=== PATIENT | female | born 1990 | race Hispanic/Latino ===

== ENCOUNTER 2018-01-20 07:35 | Inpatient (IN) | payer MEDICAID, OTHER ==
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
[2018-01-20] MEDS ORDERED: NACL 0.9% 1000 ML 2,000 ML ONE (08:48)
[2018-01-20] MEDS ORDERED: NACL 0.9% 1000 ML 1,000 ML IV ONE ×3 (09:28→14:46)
[2018-01-20] MEDS ORDERED: ATROPINE 0.1% (CARDIAC) IV ONE (09:28)
[2018-01-20 09:45] LABS: Basophils # (Auto) 0.1 K/mm3 (0.0-0.1); Eosinophils % (Auto) 0.5 % (0.0-4.3); Hematocrit 41.2 % (30.3-42.9); Hemoglobin 14.2 gm/dl (10.1-14.3); Lymphocytes # (Auto) 3.4 K/mm3 (1.2-5.4); Lymphocytes % (Auto) 44.8 % (13.4-35.0); Mean Corpuscular HGB Conc 35 % (30-34); Mean Corpuscular Hemoglobin 30 pg (28-32); Mean Corpuscular Volume 87 fl (79-97); Monocytes # (Auto) 0.6 K/mm3 (0.0-0.8); Monocytes % (Auto) 8.4 % (0.0-7.3); Platelet Count 493 K/mm3 (140-440); Red Blood Count 4.74 M/mm3 (3.65-5.03); Red Cell Distribution Width 14.6 % (13.2-15.2)
[2018-01-20] MEDS ORDERED: KEPPRA 1,000 MG in D5W 100 ML IV ONE (09:45)
[2018-01-20 09:51] LABS: Bacteria,Urine 1+ /HPF (Negative); Bilirubin,Urine NEG (Negative); Blood,Urine NEG (Negative); Calcium Oxalate Crystals,Urine 2+; Color,Urine Amber (Yellow); Mucus,Urine 2+ /HPF; Protein,Urine <15 mg/dL mg/dL (Negative)
[2018-01-20 09:52] LABS: HCG Qualitative,Urine Negative (Negative)
[2018-01-20 10:01] LABS: Alanine Aminotransferase 23 units/L (7-56); Albumin 4.4 g/dL (3.9-5); BUN/Creatinine Ratio 19; Blood Urea Nitrogen 13 mg/dL (7-17); Calcium 9.9 mg/dL (8.4-10.2); Hemolysis Index 25
[2018-01-20 10:06] LABS: Methadone Screen,Urine PRESUMPTIVE NEGATIVE; Opiate Screen,Urine PRESUMPTIVE NEGATIVE
[2018-01-20 10:20] LABS: Amphetamine Screen,Urine PRESUMPTIVE POSITIVE; Benzodiazepines Screen,Urine PRESUMPTIVE POSITIVE; Cannabinoid Screen,Urine PRESUMPTIVE POSITIVE; Cocaine Screen,Urine PRESUMPTIVE POSITIVE
[2018-01-20] MEDS ORDERED: KEPPRA 1,000 MG/NS 0.75% 100ML 1,000 MG/100 ML BAG IV ONE (11:00)
[2018-01-20] MEDS ORDERED: ATIVAN IV ONE (11:04)
[2018-01-20] MEDS ORDERED: K-DUR PO ONE ×2 (11:14→16:51)
--- NOTE | 2018-01-20 11:47 | Cat Scan Report ---
CT HEAD WITHOUT CONTRAST: HISTORY: Overdose. TECHNIQUE: Sequential 2.5mm CT images. COMPARISON: 09/12/15. FINDINGS: Cerebral Parenchyma: Within normal limits. Cerebellum: Within normal limits. Brainstem: Within normal limits. Ventricles: Normal. Sella: Normal. Extra-axial spaces: Normal. Basal Cisterns: Normal. Intracranial Hemorrhage: None. Midline Shift: None. Calvarium: Normal. Sinuses: Normal. Mastoid Air Cells: Normal. Visualized Orbits: Normal. IMPRESSION: Cranial CT scan within normal limits.
[2018-01-20] MEDS ORDERED: ROCEPHIN/NS 1 GM/50 ML 1 GM/50 ML BAG IV ONE (14:45)
[2018-01-20] MEDS ORDERED: NACL 0.9% 500 ML 500 ML IV ONE (15:59)
[2018-01-20] MEDS ORDERED: cefTRIAXone 1 GM in NACL 0.9% 20 ML IV ONE (16:00)
[2018-01-20 16:35] LABS: Alanine Aminotransferase 20 units/L (7-56); Albumin 3.9 g/dL (3.9-5); BUN/Creatinine Ratio 15; Blood Urea Nitrogen 9 mg/dL (7-17); Calcium 9.1 mg/dL (8.4-10.2); Hemolysis Index 5
[2018-01-20] MEDS ORDERED: NACL 0.9% 1000 ML 1,000 ML ONE (16:48)
[2018-01-20] MEDS ORDERED: ATIVAN ONE (16:49)
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
[2018-01-20] MEDS ORDERED: MORPHINE IV PRN (22:57)
[2018-01-20] MEDS ORDERED: TYLENOL PO PRN (22:57)
[2018-01-20] MEDS ORDERED: SODIUM CHLORIDE FLUSH SYRINGE 10 ML IV PRN (22:57)
[2018-01-20] MEDS ORDERED: ATIVAN PO PRN ×2 (23:00)
[2018-01-20] MEDS ORDERED: HALDOL IV PRN (23:00)
[2018-01-20] MEDS ORDERED: ATIVAN IV PRN ×2 (23:00)
[2018-01-21] MEDS: KEPPRA PO SCH ×3 (00:12→21:21)
[2018-01-21] MEDS: KCL 10MEQ/100ML 10 MEQ/100 ML BAG IV SCH ×4 (00:12→03:06)
[2018-01-21] MEDS: ATIVAN IV PRN ×2 (00:13→00:53)
[2018-01-21] MEDS: D5NS 1,000 ML IV SCH ×2 (00:14→19:16)
[2018-01-21 06:41] LABS: Basophils # (Auto) 0.1 K/mm3 (0.0-0.1); Basophils % (Auto) 1.1 % (0.0-1.8); Eosinophils # (Auto) 0.1 K/mm3 (0.0-0.4); Hemoglobin 12.4 gm/dl (10.1-14.3); Lymphocytes # (Auto) 4.2 K/mm3 (1.2-5.4); Lymphocytes % (Auto) 46.9 % (13.4-35.0); Mean Corpuscular HGB Conc 32 % (30-34); Mean Corpuscular Hemoglobin 28 pg (28-32); Mean Corpuscular Volume 89 fl (79-97); Monocytes # (Auto) 0.5 K/mm3 (0.0-0.8); Monocytes % (Auto) 5.9 % (0.0-7.3); Platelet Count 417 K/mm3 (140-440); Red Blood Count 4.39 M/mm3 (3.65-5.03); Red Cell Distribution Width 15.1 % (13.2-15.2)
[2018-01-21 07:05] LABS: Alanine Aminotransferase 18 units/L (7-56); Albumin 3.6 g/dL (3.9-5); BUN/Creatinine Ratio 14; Blood Urea Nitrogen 7 mg/dL (7-17); Calcium 8.9 mg/dL (8.4-10.2); Hemolysis Index 34
[2018-01-21] MEDS: PEPCID PO SCH ×2 (13:30→21:22)
[2018-01-21] MEDS: SODIUM CHLORIDE FLUSH SYRINGE 10 ML IV SCH ×2 (13:30→21:19)
[2018-01-21] MEDS ORDERED: ATIVAN PO ONE (13:37)
--- NOTE | 2018-01-21 15:10 | Progress Note ---
<MADDISON BANDA - Last Filed: 01/21/18 15:06> Assessment and Plan Assessment and plan: Patient is a 27-year-old woman who presented to the emergency department with drug overdose. Per patient's mother, who was interviewed by mental health information clerk, patient took a cocktail mixture of cocaine, THC, meth, liquid G and a pesticide. Drug overdose IV fluids for now, [facility] protocol Seizure disorder Continue Keppra Suicide attempt Patient on 1012, Mental health assessed pt, she will d/c to mental health facility once clinically stable Hypokalemia Normal today, s/p supplementation DVT prophylaxis SCDs History Interval history: Patient seen and examined. She is somnolent, responds to tactile stimuli, didn' t open her eyes. Labs and nursing notes reviewed. Hospitalist Physical - Physical exam Narrative exam: General appearance: Present: no acute distress, somnolent, well-nourished - EENT Eyes: Present: PERRL, EOM intact ENT: hearing intact, clear oral mucosa - Neck Present: supple, normal ROM - Respiratory Respiratory effort: normal Respiratory: bilateral: CTA - Cardiovascular Rhythm: regular Heart Sounds: Present: S1 & S2 - Extremities Extremities: no ischemia, No edema - Abdominal General gastrointestinal: soft, non-tender, non-distended - Integumentary Integumentary: Present: clear, warm, dry - Psychiatric Psychiatric: Unable to assess - Constitutional Vitals: Temp Pulse Resp BP Pulse Ox 97.7 F 84 20 128/90 100 01/21/18 04:00 01/21/18 04:00 01/21/18 04:00 01/21/18 04:00 01/21/18 00:40 Results - Labs CBC & Chem 7: 01/21/18 06:17 01/21/18 06:17 Labs: Laboratory Last Values WBC 9.0 K/mm3 (4.5-11.0) 01/21/18 06:17 RBC 4.39 M/mm3 (3.65-5.03) 01/21/18 06:17 Hgb 12.4 gm/dl (10.1-14.3) 01/21/18 06:17 Hct 39.0 % (30.3-42.9) 01/21/18 06:17 MCV 89 fl (79-97) 01/21/18 06:17 MCH 28 pg (28-32) 01/21/18 06:17 MCHC 32 % (30-34) 01/21/18 06:17 RDW 15.1 % (13.2-15.2) 01/21/18 06:17 Plt Count 417 K/mm3 (140-440) 01/21/18 06:17 Lymph % (Auto) 46.9 % (13.4-35.0) H 01/21/18 06:17 [place] % (Auto) 5.9 % (0.0-7.3) 01/21/18 06:17 Eos % (Auto) 1.0 % (0.0-4.3) 01/21/18 06:17 Baso % (Auto) 1.1 % (0.0-1.8) 01/21/18 06:17 Lymph # 4.2 K/mm3 (1.2-5.4) 01/21/18 06:17 [place] # 0.5 K/mm3 (0.0-0.8) 01/21/18 06:17 Eos # 0.1 K/mm3 (0.0-0.4) 01/21/18 06:17 Baso # 0.1 K/mm3 (0.0-0.1) 01/21/18 06:17 Seg Neutrophils % 45.1 % (40.0-70.0) 01/21/18 06:17 Seg Neutrophils # 4.0 K/mm3 (1.8-7.7) 01/21/18 06:17 Sodium 140 mmol/L (137-145) 01/21/18 06:17 Potassium 3.9 mmol/L (3.6-5.0) D 01/21/18 06:17 Chloride 105.3 mmol/L (98-107) 01/21/18 06:17 Carbon Dioxide 21 mmol/L (22-30) L 01/21/18 06:17 Anion Gap 18 mmol/L 01/21/18 06:17 BUN 7 mg/dL (7-17) 01/21/18 06:17 Creatinine 0.5 mg/dL (0.7-1.2) L 01/21/18 06:17 Estimated GFR > 60 ml/min 01/21/18 06:17 BUN/Creatinine Ratio 14 % 01/21/18 06:17 Glucose 94 mg/dL (65-100) 01/21/18 06:17 Calcium 8.9 mg/dL (8.4-10.2) 01/21/18 06:17 Phosphorus 3.00 mg/dL (2.5-4.5) 01/20/18 23:28 Magnesium 1.80 mg/dL (1.7-2.3) 01/20/18 23:28 Total Bilirubin 0.30 mg/dL (0.1-1.2) 01/21/18 06:17 AST 13 units/L (5-40) 01/21/18 06:17 ALT 18 units/L (7-56) 01/21/18 06:17 Alkaline Phosphatase 91 units/L (35-129) 01/21/18 06:17 Total Protein 6.4 g/dL (6.3-8.2) 01/21/18 06:17 Albumin 3.6 g/dL (3.9-5) L 01/21/18 06:17 Albumin/Globulin Ratio 1.3 % 01/21/18 06:17 Amylase 92 units/L (27-131) 01/20/18 23:28 Urine Color [place] (Yellow) 01/20/18 08:45 Urine Turbidity Cloudy (Clear) 01/20/18 08:45 Urine pH 6.0 (5.0-7.0) 01/20/18 08:45 Ur Specific [place] 1.021 (1.003-1.030) 01/20/18 08:45 Urine Protein <15 mg/dl mg/dL (Negative) 01/20/18 08:45 Urine Glucose (UA) Neg mg/dL (Negative) 01/20/18 08:45 Urine Ketones Tr mg/dL (Negative) 01/20/18 08:45 Urine Blood Neg (Negative) 01/20/18 08:45 Urine Nitrite Neg (Negative) 01/20/18 08:45 Urine Bilirubin Neg (Negative) 01/20/18 08:45 Urine Urobilinogen 2.0 mg/dL (<2.0) 01/20/18 08:45 Ur Leukocyte Esterase Tr (Negative) 01/20/18 08:45 Urine WBC (Auto) 12.0 /HPF (0.0-6.0) H 01/20/18 08:45 Urine RBC (Auto) 1.0 /HPF (0.0-6.0) 01/20/18 08:45 U Epithel Cells (Auto) 2.0 /HPF (0-13.0) 01/20/18 08:45 Urine Bacteria (Auto) 1+ /HPF (Negative) 01/20/18 08:45 Calcium Oxalate Crystal 2+ 01/20/18 08:45 Urine Mucus 2+ /HPF 01/20/18 08:45 Urine HCG, Qual Negative (Negative) 01/20/18 08:45 Salicylates < 0.3 mg/dL (2.8-20.0) L 01/20/18 15:43 Urine Opiates Screen Presumptive negative 01/20/18 08:45 Urine Methadone Screen Presumptive negative 01/20/18 08:45 Acetaminophen < 5.0 ug/mL (10.0-30.0) L 01/20/18 15:43 Ur Barbiturates Screen Presumptive negative 01/20/18 08:45 Ur Phencyclidine Scrn Presumptive negative 01/20/18 08:45 Ur Amphetamines Screen Presumptive positive 01/20/18 08:45 U Benzodiazepines Scrn Presumptive positive 01/20/18 08:45 Urine Cocaine Screen Presumptive positive 01/20/18 08:45 U Marijuana (THC) Screen Presumptive positive 01/20/18 08:45 Drugs of Abuse Note Disclamer 01/20/18 08:45 <HERMAN FRITZ O - Last Filed: 01/23/18 01:54> History Interval history: I saw and evaluated the patient. I agree with the findings and the plan of care as documented in the Nurse Practitioner's~note, with the following corrections and additions. Hospitalist Physical - Constitutional Vitals: Temp Pulse Resp BP Pulse Ox 98.3 F 62 16 136/89 100 01/23/18 00:15 01/23/18 00:15 01/23/18 00:15 01/23/18 00:15 01/23/18 00:15 Results - Labs CBC & Chem 7: 01/21/18 06:17 01/21/18 06:17 Labs: Laboratory Last Values WBC 9.0 K/mm3 (4.5-11.0) 01/21/18 06:17 RBC 4.39 M/mm3 (3.65-5.03) 01/21/18 06:17 Hgb 12.4 gm/dl (10.1-14.3) 01/21/18 06:17 Hct 39.0 % (30.3-42.9) 01/21/18 06:17 MCV 89 fl (79-97) 01/21/18 06:17 MCH 28 pg (28-32) 01/21/18 06:17 MCHC 32 % (30-34) 01/21/18 06:17 RDW 15.1 % (13.2-15.2) 01/21/18 06:17 Plt Count 417 K/mm3 (140-440) 01/21/18 06:17 Lymph % (Auto) 46.9 % (13.4-35.0) H 01/21/18 06:17 [place] % (Auto) 5.9 % (0.0-7.3) 01/21/18 06:17 Eos % (Auto) 1.0 % (0.0-4.3) 01/21/18 06:17 Baso % (Auto) 1.1 % (0.0-1.8) 01/21/18 06:17 Lymph # 4.2 K/mm3 (1.2-5.4) 01/21/18 06:17 [place] # 0.5 K/mm3 (0.0-0.8) 01/21/18 06:17 Eos # 0.1 K/mm3 (0.0-0.4) 01/21/18 06:17 Baso # 0.1 K/mm3 (0.0-0.1) 01/21/18 06:17 Seg Neutrophils % 45.1 % (40.0-70.0) 01/21/18 06:17 Seg Neutrophils # 4.0 K/mm3 (1.8-7.7) 01/21/18 06:17 Sodium 140 mmol/L (137-145) 01/21/18 06:17 Potassium 3.9 mmol/L (3.6-5.0) D 01/21/18 06:17 Chloride 105.3 mmol/L (98-107) 01/21/18 06:17 Carbon Dioxide 21 mmol/L (22-30) L 01/21/18 06:17 Anion Gap 18 mmol/L 01/21/18 06:17 BUN 7 mg/dL (7-17) 01/21/18 06:17 Creatinine 0.5 mg/dL (0.7-1.2) L 01/21/18 06:17 Estimated GFR > 60 ml/min 01/21/18 06:17 BUN/Creatinine Ratio 14 % 01/21/18 06:17 Glucose 94 mg/dL (65-100) 01/21/18 06:17 Calcium 8.9 mg/dL (8.4-10.2) 01/21/18 06:17 Phosphorus 3.00 mg/dL (2.5-4.5) 01/20/18 23:28 Magnesium 1.80 mg/dL (1.7-2.3) 01/20/18 23:28 Total Bilirubin 0.30 mg/dL (0.1-1.2) 01/21/18 06:17 AST 13 units/L (5-40) 01/21/18 06:17 ALT 18 units/L (7-56) 01/21/18 06:17 Alkaline Phosphatase 91 units/L (35-129) 01/21/18 06:17 Total Protein 6.4 g/dL (6.3-8.2) 01/21/18 06:17 Albumin 3.6 g/dL (3.9-5) L 01/21/18 06:17 Albumin/Globulin Ratio 1.3 % 01/21/18 06:17 Amylase 92 units/L (27-131) 01/20/18 23:28 Urine Color [place] (Yellow) 01/20/18 08:45 Urine Turbidity Cloudy (Clear) 01/20/18 08:45 Urine pH 6.0 (5.0-7.0) 01/20/18 08:45 Ur Specific [place] 1.021 (1.003-1.030) 01/20/18 08:45 Urine Protein <15 mg/dl mg/dL (Negative) 01/20/18 08:45 Urine Glucose (UA) Neg mg/dL (Negative) 01/20/18 08:45 Urine Ketones Tr mg/dL (Negative) 01/20/18 08:45 Urine Blood Neg (Negative) 01/20/18 08:45 Urine Nitrite Neg (Negative) 01/20/18 08:45 Urine Bilirubin Neg (Negative) 01/20/18 08:45 Urine Urobilinogen 2.0 mg/dL (<2.0) 01/20/18 08:45 Ur Leukocyte Esterase Tr (Negative) 01/20/18 08:45 Urine WBC (Auto) 12.0 /HPF (0.0-6.0) H 01/20/18 08:45 Urine RBC (Auto) 1.0 /HPF (0.0-6.0) 01/20/18 08:45 U Epithel Cells (Auto) 2.0 /HPF (0-13.0) 01/20/18 08:45 Urine Bacteria (Auto) 1+ /HPF (Negative) 01/20/18 08:45 Calcium Oxalate Crystal 2+ 01/20/18 08:45 Urine Mucus 2+ /HPF 01/20/18 08:45 Urine HCG, Qual Negative (Negative) 01/20/18 08:45 Salicylates < 0.3 mg/dL (2.8-20.0) L 01/20/18 15:43 Urine Opiates Screen Presumptive negative 01/20/18 08:45 Urine Methadone Screen Presumptive negative 01/20/18 08:45 Acetaminophen < 5.0 ug/mL (10.0-30.0) L 01/20/18 15:43 Ur Barbiturates Screen Presumptive negative 01/20/18 08:45 Ur Phencyclidine Scrn Presumptive negative 01/20/18 08:45 Ur Amphetamines Screen Presumptive positive 01/20/18 08:45 U Benzodiazepines Scrn Presumptive positive 01/20/18 08:45 Urine Cocaine Screen Presumptive positive 01/20/18 08:45 U Marijuana (THC) Screen Presumptive positive 01/20/18 08:45 Drugs of Abuse Note Disclamer 01/20/18 08:45
--- NOTE | 2018-01-22 09:44 | Progress Note ---
Assessment and Plan Assessment and plan: Patient is a 27-year-old woman who presented to the emergency department with drug overdose. Per patient's mother, who was interviewed by mental health boat puller, patient took a cocktail mixture of cocaine, THC, meth, liquid G and a pesticide. Drug overdose IV fluids for now, [facility] protocol Seizure disorder Continue Kera Suicide attempt Patient on 101, Mental health assessed pt, she will d/c to mental health facility when bed available. She is medically stable for discharge Hypokalemia, resolved DVT prophylaxis: SCDs History Interval history: suicidal attempt Hospitalist Physical - Physical exam Narrative exam: General:Not in acute distress, lying in bed, HEENT:Normocephalic, atraumatic Neck:supple,no JVD Lungs: Clear to auscultation, no rales, no wheeze Heart:S1 and S2 regular, no murmurs, rubs or gallop Abd: soft, non tender,non distended, normal bowel sounds Ext: No edema, no clubbing or cyanosis Neuro:Awake,alert,oriented x 3, moves all extremities, - Constitutional Vitals: Temp Pulse Resp BP Pulse Ox 98.6 F 58 L 18 128/77 99 01/22/18 07:52 01/22/18 07:52 01/22/18 07:52 01/22/18 07:52 01/22/18 07:52 General appearance: Present: no acute distress, well-nourished Results - Labs CBC & Chem 7: 01/21/18 06:17 01/21/18 06:17 Labs: Laboratory Last Values WBC 9.0 K/mm3 (4.5-11.0) 01/21/18 06:17 RBC 4.39 M/mm3 (3.65-5.03) 01/21/18 06:17 Hgb 12.4 gm/dl (10.1-14.3) 01/21/18 06:17 Hct 39.0 % (30.3-42.9) 01/21/18 06:17 MCV 89 fl (79-97) 01/21/18 06:17 MCH 28 pg (28-32) 01/21/18 06:17 MCHC 32 % (30-34) 01/21/18 06:17 RDW 15.1 % (13.2-15.2) 01/21/18 06:17 Plt Count 417 K/mm3 (140-440) 01/21/18 06:17 Lymph % (Auto) 46.9 % (13.4-35.0) H 01/21/18 06:17 [place] % (Auto) 5.9 % (0.0-7.3) 01/21/18 06:17 Eos % (Auto) 1.0 % (0.0-4.3) 01/21/18 06:17 Baso % (Auto) 1.1 % (0.0-1.8) 01/21/18 06:17 Lymph # 4.2 K/mm3 (1.2-5.4) 01/21/18 06:17 [place] # 0.5 K/mm3 (0.0-0.8) 01/21/18 06:17 Eos # 0.1 K/mm3 (0.0-0.4) 01/21/18 06:17 Baso # 0.1 K/mm3 (0.0-0.1) 01/21/18 06:17 Seg Neutrophils % 45.1 % (40.0-70.0) 01/21/18 06:17 Seg Neutrophils # 4.0 K/mm3 (1.8-7.7) 01/21/18 06:17 Sodium 140 mmol/L (137-145) 01/21/18 06:17 Potassium 3.9 mmol/L (3.6-5.0) D 01/21/18 06:17 Chloride 105.3 mmol/L (98-107) 01/21/18 06:17 Carbon Dioxide 21 mmol/L (22-30) L 01/21/18 06:17 Anion Gap 18 mmol/L 01/21/18 06:17 BUN 7 mg/dL (7-17) 01/21/18 06:17 Creatinine 0.5 mg/dL (0.7-1.2) L 01/21/18 06:17 Estimated GFR > 60 ml/min 01/21/18 06:17 BUN/Creatinine Ratio 14 % 01/21/18 06:17 Glucose 94 mg/dL (65-100) 01/21/18 06:17 Calcium 8.9 mg/dL (8.4-10.2) 01/21/18 06:17 Phosphorus 3.00 mg/dL (2.5-4.5) 01/20/18 23:28 Magnesium 1.80 mg/dL (1.7-2.3) 01/20/18 23:28 Total Bilirubin 0.30 mg/dL (0.1-1.2) 01/21/18 06:17 AST 13 units/L (5-40) 01/21/18 06:17 ALT 18 units/L (7-56) 01/21/18 06:17 Alkaline Phosphatase 91 units/L (35-129) 01/21/18 06:17 Total Protein 6.4 g/dL (6.3-8.2) 01/21/18 06:17 Albumin 3.6 g/dL (3.9-5) L 01/21/18 06:17 Albumin/Globulin Ratio 1.3 % 01/21/18 06:17 Amylase 92 units/L (27-131) 01/20/18 23:28 Urine Color [place] (Yellow) 01/20/18 08:45 Urine Turbidity Cloudy (Clear) 01/20/18 08:45 Urine pH 6.0 (5.0-7.0) 01/20/18 08:45 Ur Specific [place] 1.021 (1.003-1.030) 01/20/18 08:45 Urine Protein <15 mg/dl mg/dL (Negative) 01/20/18 08:45 Urine Glucose (UA) Neg mg/dL (Negative) 01/20/18 08:45 Urine Ketones Tr mg/dL (Negative) 01/20/18 08:45 Urine Blood Neg (Negative) 01/20/18 08:45 Urine Nitrite Neg (Negative) 01/20/18 08:45 Urine Bilirubin Neg (Negative) 01/20/18 08:45 Urine Urobilinogen 2.0 mg/dL (<2.0) 01/20/18 08:45 Ur Leukocyte Esterase Tr (Negative) 01/20/18 08:45 Urine WBC (Auto) 12.0 /HPF (0.0-6.0) H 01/20/18 08:45 Urine RBC (Auto) 1.0 /HPF (0.0-6.0) 01/20/18 08:45 U Epithel Cells (Auto) 2.0 /HPF (0-13.0) 01/20/18 08:45 Urine Bacteria (Auto) 1+ /HPF (Negative) 01/20/18 08:45 Calcium Oxalate Crystal 2+ 01/20/18 08:45 Urine Mucus 2+ /HPF 01/20/18 08:45 Urine HCG, Qual Negative (Negative) 01/20/18 08:45 Salicylates < 0.3 mg/dL (2.8-20.0) L 01/20/18 15:43 Urine Opiates Screen Presumptive negative 01/20/18 08:45 Urine Methadone Screen Presumptive negative 01/20/18 08:45 Acetaminophen < 5.0 ug/mL (10.0-30.0) L 01/20/18 15:43 Ur Barbiturates Screen Presumptive negative 01/20/18 08:45 Ur Phencyclidine Scrn Presumptive negative 01/20/18 08:45 Ur Amphetamines Screen Presumptive positive 01/20/18 08:45 U Benzodiazepines Scrn Presumptive positive 01/20/18 08:45 Urine Cocaine Screen Presumptive positive 01/20/18 08:45 U Marijuana (THC) Screen Presumptive positive 01/20/18 08:45 Drugs of Abuse Note Disclamer 01/20/18 08:45
[2018-01-22] MEDS: KEPPRA PO SCH ×2 (11:22→22:21)
[2018-01-22] MEDS: PEPCID PO SCH ×2 (11:22→22:22)
[2018-01-22] MEDS: SODIUM CHLORIDE FLUSH SYRINGE 10 ML IV SCH ×2 (11:23→22:22)
[2018-01-22] MEDS: HABITROL TD SCH (13:00)
--- NOTE | 2018-01-22 14:12 | Consultation ---
History of Present Illness - Reason for Consult Consult date: 01/22/18 Reason for consult: Initial Psychiatric Evaluation - Chief Complaint Chief complaint: Chief complaint: Overdose on GBH with the intention of suicide Medications and Allergies Allergies Allergy/AdvReac Type Severity Reaction Status Date / Time No Known Allergies Allergy Unverified 06/10/13 08:08 Home Medications Medication Instructions Recorded Confirmed Last Taken Type levETIRAcetam [Keppra] 500 mg PO BID 01/20/18 01/20/18 Unknown History Active Meds: Active Medications Acetaminophen (Tylenol) 650 mg PO Q4H PRN PRN Reason: Pain MILD(1-3)/Fever >100.5/JAIME Famotidine (Pepcid) 20 mg PO BID [facility] Last Admin: 01/21/18 21:22 Dose: 20 mg Haloperidol Lactate (Haldol) 5 mg IV Q1H PRN PRN Reason: Unrespon. to mult. doses BZD's Last Admin: 01/21/18 02:46 Dose: 5 mg Dextrose/Sodium Chloride (D5ns) 1,000 mls @ 100 mls/hr IV DIRECT [facility] Last Admin: 01/21/18 19:16 Dose: 100 mls/hr Levetiracetam (Keppra) 750 mg PO BID [facility] Last Admin: 01/21/18 21:21 Dose: 750 mg Lorazepam (Ativan) 2 mg IV Q1H PRN PRN Reason: CIWA-Ar 8-15 Lorazepam (Ativan) 2 mg PO Q1H PRN PRN Reason: CIWA-Ar 8-15 Lorazepam (Ativan) 4 mg IV Q1H PRN PRN Reason: CIWA-Ar 16-25 Last Admin: 01/21/18 00:53 Dose: 4 mg Lorazepam (Ativan) 4 mg PO Q1H PRN PRN Reason: CIWA-Ar 16-25 Lorazepam (Ativan) 4 mg IV Q15MIN PRN PRN Reason: CIWA-Ar >25 Morphine Sulfate (Morphine) 2 mg IV Q4H PRN PRN Reason: Pain, Moderate (4-6) Nicotine (Habitrol) 21 mg TD QDAY [facility] Ondansetron HCl (Zofran) 4 mg IV Q8H PRN PRN Reason: Nausea And Vomiting Oxycodone/Acetaminophen (Percocet 5/325) 1 tab PO Q6H PRN PRN Reason: Pain, Moderate (4-6) Sodium Chloride (Sodium Chloride Flush Syringe 10 Ml) 10 ml IV BID [facility] Last Admin: 01/21/18 21:19 Dose: 10 ml Sodium Chloride (Sodium Chloride Flush Syringe 10 Ml) 10 ml IV PRN PRN PRN Reason: LINE FLUSH Mental Status Exam - Vital signs Last Vital Signs Temp 98.7 F 01/22/18 11:39 Pulse 68 01/22/18 11:39 Resp 18 01/22/18 11:39 BP 133/86 01/22/18 11:39 Pulse Ox 97 01/22/18 11:39 Results Result Diagrams: 01/21/18 06:17 01/21/18 06:17 All other labs normal. Assessment and Plan Assessment and plan: 1. Will start Remeron 15mg po QHS for PTSD. 2. Will start Vistrail 25mg po Q 6 hours PRN anxiety. 3. Educated patient on side effects related to increase suicidal thoughts. Patient verbalizes full understanding.
[2018-01-22] MEDS: D5NS 1,000 ML IV SCH (22:21)
[2018-01-22] MEDS: VISTARIL PO PRN (22:23)
--- NOTE | 2018-01-23 10:34 | Progress Note ---
Assessment and Plan Assessment and plan: Patient is a 27-year-old woman who presented to the emergency department with drug overdose. Per patient's mother, who was interviewed by mental health eyeglass lens grinder, patient took a cocktail mixture of cocaine, THC, meth, liquid G and a pesticide. Drug overdose IV fluids for now, [facility] protocol Seizure disorder Continue Kera Suicide attempt Patient on 101, Mental health assessed pt, she will d/c to mental health facility when bed available. She is medically stable for discharge Hypokalemia, resolved DVT prophylaxis: SCDs History Interval history: suicidal attempt Hospitalist Physical - Physical exam Narrative exam: General:Not in acute distress, lying in bed, HEENT:Normocephalic, atraumatic Neck:supple,no JVD Lungs: Clear to auscultation, no rales, no wheeze Heart:S1 and S2 regular, no murmurs, rubs or gallop Abd: soft, non tender,non distended, normal bowel sounds Ext: No edema, no clubbing or cyanosis Neuro:Awake,alert,oriented x 3, moves all extremities, - Constitutional Vitals: Temp Pulse Resp BP Pulse Ox 98.3 F 75 18 130/90 99 01/23/18 08:27 01/23/18 08:27 01/23/18 08:27 01/23/18 08:27 01/23/18 08:27 General appearance: Present: no acute distress, well-nourished Results - Labs CBC & Chem 7: 01/21/18 06:17 01/21/18 06:17 Labs: Laboratory Last Values WBC 9.0 K/mm3 (4.5-11.0) 01/21/18 06:17 RBC 4.39 M/mm3 (3.65-5.03) 01/21/18 06:17 Hgb 12.4 gm/dl (10.1-14.3) 01/21/18 06:17 Hct 39.0 % (30.3-42.9) 01/21/18 06:17 MCV 89 fl (79-97) 01/21/18 06:17 MCH 28 pg (28-32) 01/21/18 06:17 MCHC 32 % (30-34) 01/21/18 06:17 RDW 15.1 % (13.2-15.2) 01/21/18 06:17 Plt Count 417 K/mm3 (140-440) 01/21/18 06:17 Lymph % (Auto) 46.9 % (13.4-35.0) H 01/21/18 06:17 [place] % (Auto) 5.9 % (0.0-7.3) 01/21/18 06:17 Eos % (Auto) 1.0 % (0.0-4.3) 01/21/18 06:17 Baso % (Auto) 1.1 % (0.0-1.8) 01/21/18 06:17 Lymph # 4.2 K/mm3 (1.2-5.4) 01/21/18 06:17 [place] # 0.5 K/mm3 (0.0-0.8) 01/21/18 06:17 Eos # 0.1 K/mm3 (0.0-0.4) 01/21/18 06:17 Baso # 0.1 K/mm3 (0.0-0.1) 01/21/18 06:17 Seg Neutrophils % 45.1 % (40.0-70.0) 01/21/18 06:17 Seg Neutrophils # 4.0 K/mm3 (1.8-7.7) 01/21/18 06:17 Sodium 140 mmol/L (137-145) 01/21/18 06:17 Potassium 3.9 mmol/L (3.6-5.0) D 01/21/18 06:17 Chloride 105.3 mmol/L (98-107) 01/21/18 06:17 Carbon Dioxide 21 mmol/L (22-30) L 01/21/18 06:17 Anion Gap 18 mmol/L 01/21/18 06:17 BUN 7 mg/dL (7-17) 01/21/18 06:17 Creatinine 0.5 mg/dL (0.7-1.2) L 01/21/18 06:17 Estimated GFR > 60 ml/min 01/21/18 06:17 BUN/Creatinine Ratio 14 % 01/21/18 06:17 Glucose 94 mg/dL (65-100) 01/21/18 06:17 Calcium 8.9 mg/dL (8.4-10.2) 01/21/18 06:17 Phosphorus 3.00 mg/dL (2.5-4.5) 01/20/18 23:28 Magnesium 1.80 mg/dL (1.7-2.3) 01/20/18 23:28 Total Bilirubin 0.30 mg/dL (0.1-1.2) 01/21/18 06:17 AST 13 units/L (5-40) 01/21/18 06:17 ALT 18 units/L (7-56) 01/21/18 06:17 Alkaline Phosphatase 91 units/L (35-129) 01/21/18 06:17 Total Protein 6.4 g/dL (6.3-8.2) 01/21/18 06:17 Albumin 3.6 g/dL (3.9-5) L 01/21/18 06:17 Albumin/Globulin Ratio 1.3 % 01/21/18 06:17 Amylase 92 units/L (27-131) 01/20/18 23:28 Urine Color Sonia (Yellow) 01/20/18 08:45 Urine Turbidity Cloudy (Clear) 01/20/18 08:45 Urine pH 6.0 (5.0-7.0) 01/20/18 08:45 Ur Specific [place] 1.021 (1.003-1.030) 01/20/18 08:45 Urine Protein <15 mg/dl mg/dL (Negative) 01/20/18 08:45 Urine Glucose (UA) Neg mg/dL (Negative) 01/20/18 08:45 Urine Ketones Tr mg/dL (Negative) 01/20/18 08:45 Urine Blood Neg (Negative) 01/20/18 08:45 Urine Nitrite Neg (Negative) 01/20/18 08:45 Urine Bilirubin Neg (Negative) 01/20/18 08:45 Urine Urobilinogen 2.0 mg/dL (<2.0) 01/20/18 08:45 Ur Leukocyte Esterase Tr (Negative) 01/20/18 08:45 Urine WBC (Auto) 12.0 /HPF (0.0-6.0) H 01/20/18 08:45 Urine RBC (Auto) 1.0 /HPF (0.0-6.0) 01/20/18 08:45 U Epithel Cells (Auto) 2.0 /HPF (0-13.0) 01/20/18 08:45 Urine Bacteria (Auto) 1+ /HPF (Negative) 01/20/18 08:45 Calcium Oxalate Crystal 2+ 01/20/18 08:45 Urine Mucus 2+ /HPF 01/20/18 08:45 Urine HCG, Qual Negative (Negative) 01/20/18 08:45 Salicylates < 0.3 mg/dL (2.8-20.0) L 01/20/18 15:43 Urine Opiates Screen Presumptive negative 01/20/18 08:45 Urine Methadone Screen Presumptive negative 01/20/18 08:45 Acetaminophen < 5.0 ug/mL (10.0-30.0) L 01/20/18 15:43 Ur Barbiturates Screen Presumptive negative 01/20/18 08:45 Ur Phencyclidine Scrn Presumptive negative 01/20/18 08:45 Ur Amphetamines Screen Presumptive positive 01/20/18 08:45 U Benzodiazepines Scrn Presumptive positive 01/20/18 08:45 Urine Cocaine Screen Presumptive positive 01/20/18 08:45 U Marijuana (THC) Screen Presumptive positive 01/20/18 08:45 Drugs of Abuse Note Disclamer 01/20/18 08:45
--- NOTE | 2018-01-23 10:36 | Event Note ---
Date: 01/23/18 Patient medically stable for discharge to [facility] facility.
[2018-01-23] MEDS: SODIUM CHLORIDE FLUSH SYRINGE 10 ML IV SCH ×2 (12:10→21:42)
[2018-01-23] MEDS: HABITROL TD SCH (12:10)
[2018-01-23] MEDS: KEPPRA PO SCH ×2 (12:10→21:41)
[2018-01-23] MEDS: PEPCID PO SCH ×2 (12:10→21:42)
[2018-01-23] MEDS: LOVENOX SUB-Q SCH (13:10)
[2018-01-23] MEDS: VISTARIL PO PRN (21:42)
[2018-01-23] MEDS: D5NS 1,000 ML IV SCH (21:44)
[2018-01-24] MEDS: D5NS 1,000 ML IV SCH (06:48)
[2018-01-24] MEDS: PERCOCET 5/325 PO PRN ×2 (08:05→23:02)
[2018-01-24] MEDS: KEPPRA PO SCH ×2 (09:30→22:42)
[2018-01-24] MEDS: LEVAQUIN PO SCH (09:30)
[2018-01-24] MEDS: LOVENOX SUB-Q SCH (09:30)
[2018-01-24] MEDS: SODIUM CHLORIDE FLUSH SYRINGE 10 ML IV SCH (09:30)
[2018-01-24] MEDS: HABITROL TD SCH (09:30)
[2018-01-24] MEDS: PEPCID PO SCH ×2 (09:30→22:42)
--- NOTE | 2018-01-24 09:46 | Progress Note ---
Assessment and Plan Assessment and plan: Patient is a 27-year-old woman who presented to the emergency department with drug overdose. Per patient's mother, who was interviewed by mental health recording engineer, patient took a cocktail mixture of cocaine, THC, meth, liquid G and a pesticide. Drug overdose IV fluids for now, [facility] protocol Seizure disorder Continue Keppra 750mg po bid Suicide attempt Patient on 1013, Mental health assessed pt, she will d/c to mental health facility when bed available. She is medically stable for discharge UTI. Started on Levaquin po Hypokalemia, resolved DVT prophylaxis: Lovenox,SCDs History Interval history: suicidal attempt, Substance abuse, Wants to go home Hospitalist Physical - Physical exam Narrative exam: General:Not in acute distress, lying in bed, HEENT:Normocephalic, atraumatic Neck:supple,no JVD Lungs: Clear to auscultation, no rales, no wheeze Heart:S1 and S2 regular, no murmurs, rubs or gallop Abd: soft, non tender,non distended, normal bowel sounds Ext: No edema, no clubbing or cyanosis Neuro:Awake,alert,oriented x 3, moves all extremities, - Constitutional Vitals: Temp Pulse Resp BP Pulse Ox 98.5 F 62 16 133/99 98 01/24/18 04:02 01/23/18 23:41 01/24/18 04:02 01/24/18 04:02 01/23/18 23:41 General appearance: Present: no acute distress, well-nourished Results - Labs CBC & Chem 7: 01/21/18 06:17 01/21/18 06:17 Labs: Laboratory Last Values WBC 9.0 K/mm3 (4.5-11.0) 01/21/18 06:17 RBC 4.39 M/mm3 (3.65-5.03) 01/21/18 06:17 Hgb 12.4 gm/dl (10.1-14.3) 01/21/18 06:17 Hct 39.0 % (30.3-42.9) 01/21/18 06:17 MCV 89 fl (79-97) 01/21/18 06:17 MCH 28 pg (28-32) 01/21/18 06:17 MCHC 32 % (30-34) 01/21/18 06:17 RDW 15.1 % (13.2-15.2) 01/21/18 06:17 Plt Count 417 K/mm3 (140-440) 01/21/18 06:17 Lymph % (Auto) 46.9 % (13.4-35.0) H 01/21/18 06:17 [place] % (Auto) 5.9 % (0.0-7.3) 01/21/18 06:17 Eos % (Auto) 1.0 % (0.0-4.3) 01/21/18 06:17 Baso % (Auto) 1.1 % (0.0-1.8) 01/21/18 06:17 Lymph # 4.2 K/mm3 (1.2-5.4) 01/21/18 06:17 [place] # 0.5 K/mm3 (0.0-0.8) 01/21/18 06:17 Eos # 0.1 K/mm3 (0.0-0.4) 01/21/18 06:17 Baso # 0.1 K/mm3 (0.0-0.1) 01/21/18 06:17 Seg Neutrophils % 45.1 % (40.0-70.0) 01/21/18 06:17 Seg Neutrophils # 4.0 K/mm3 (1.8-7.7) 01/21/18 06:17 Sodium 140 mmol/L (137-145) 01/21/18 06:17 Potassium 3.9 mmol/L (3.6-5.0) D 01/21/18 06:17 Chloride 105.3 mmol/L (98-107) 01/21/18 06:17 Carbon Dioxide 21 mmol/L (22-30) L 01/21/18 06:17 Anion Gap 18 mmol/L 01/21/18 06:17 BUN 7 mg/dL (7-17) 01/21/18 06:17 Creatinine 0.5 mg/dL (0.7-1.2) L 01/21/18 06:17 Estimated GFR > 60 ml/min 01/21/18 06:17 BUN/Creatinine Ratio 14 % 01/21/18 06:17 Glucose 94 mg/dL (65-100) 01/21/18 06:17 Calcium 8.9 mg/dL (8.4-10.2) 01/21/18 06:17 Phosphorus 3.00 mg/dL (2.5-4.5) 01/20/18 23:28 Magnesium 1.80 mg/dL (1.7-2.3) 01/20/18 23:28 Total Bilirubin 0.30 mg/dL (0.1-1.2) 01/21/18 06:17 AST 13 units/L (5-40) 01/21/18 06:17 ALT 18 units/L (7-56) 01/21/18 06:17 Alkaline Phosphatase 91 units/L (35-129) 01/21/18 06:17 Total Protein 6.4 g/dL (6.3-8.2) 01/21/18 06:17 Albumin 3.6 g/dL (3.9-5) L 01/21/18 06:17 Albumin/Globulin Ratio 1.3 % 01/21/18 06:17 Amylase 92 units/L (27-131) 01/20/18 23:28 Urine Color [place] (Yellow) 01/20/18 08:45 Urine Turbidity Cloudy (Clear) 01/20/18 08:45 Urine pH 6.0 (5.0-7.0) 01/20/18 08:45 Ur Specific [place] 1.021 (1.003-1.030) 01/20/18 08:45 Urine Protein <15 mg/dl mg/dL (Negative) 01/20/18 08:45 Urine Glucose (UA) Neg mg/dL (Negative) 01/20/18 08:45 Urine Ketones Tr mg/dL (Negative) 01/20/18 08:45 Urine Blood Neg (Negative) 01/20/18 08:45 Urine Nitrite Neg (Negative) 01/20/18 08:45 Urine Bilirubin Neg (Negative) 01/20/18 08:45 Urine Urobilinogen 2.0 mg/dL (<2.0) 01/20/18 08:45 Ur Leukocyte Esterase Tr (Negative) 01/20/18 08:45 Urine WBC (Auto) 12.0 /HPF (0.0-6.0) H 01/20/18 08:45 Urine RBC (Auto) 1.0 /HPF (0.0-6.0) 01/20/18 08:45 U Epithel Cells (Auto) 2.0 /HPF (0-13.0) 01/20/18 08:45 Urine Bacteria (Auto) 1+ /HPF (Negative) 01/20/18 08:45 Calcium Oxalate Crystal 2+ 01/20/18 08:45 Urine Mucus 2+ /HPF 01/20/18 08:45 Urine HCG, Qual Negative (Negative) 01/20/18 08:45 Salicylates < 0.3 mg/dL (2.8-20.0) L 01/20/18 15:43 Urine Opiates Screen Presumptive negative 01/20/18 08:45 Urine Methadone Screen Presumptive negative 01/20/18 08:45 Acetaminophen < 5.0 ug/mL (10.0-30.0) L 01/20/18 15:43 Ur Barbiturates Screen Presumptive negative 01/20/18 08:45 Ur Phencyclidine Scrn Presumptive negative 01/20/18 08:45 Ur Amphetamines Screen Presumptive positive 01/20/18 08:45 U Benzodiazepines Scrn Presumptive positive 01/20/18 08:45 Urine Cocaine Screen Presumptive positive 01/20/18 08:45 U Marijuana (THC) Screen Presumptive positive 01/20/18 08:45 Drugs of Abuse Note Disclamer 01/20/18 08:45
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
[2018-01-24] MEDS: REMERON PO SCH (22:42)
[2018-01-25] MEDS: SODIUM CHLORIDE FLUSH SYRINGE 10 ML IV SCH ×3 (02:39→21:27)
[2018-01-25] MEDS: HABITROL TD SCH (10:50)
--- NOTE | 2018-01-25 10:50 | Progress Note ---
Subjective - Reason for Consult Consult date: 01/25/18 Reason for consult: Psychiatry Follow-up - Chief Complaint Chief complaint: "Hello" 27-year-old female presents emergency room with seizure-like activity and thrashing around. Today the patient is calm and cooperative during the assessment. She stated that she should have made a better decision than use recreational drugs. She stated that she have been talking with her mother about how to better her life. She denies SI/HI's and AVH's. She denies any side effects of her medications. Mental Status Exam - Vital signs Last Vital Signs Temp 98.2 F 01/25/18 08:45 Pulse 102 H 01/25/18 08:45 Resp 18 01/25/18 08:45 BP 127/84 01/25/18 08:45 Pulse Ox 97 01/25/18 08:45 - Exam Narrative exam: MSE: Appearance: calm, cooperative Behavior: regular eye contact Speech: regular rate and tone Mood: "okay" Affect: normal Thought Process: circumstantial Thought Content: denies SI/HI's and AVH's Motor Activity: sitting up in bed Cognition: A/O x 3 Insight: variable Judgment: variable Assessment and Plan Impression: MDD, Severe Type. MARLINE. Substance Use DO (cocaine). Cannabis Use DO. PTSD. Today the patient is calm and cooperative during the assessment. The patient positive for benzos. Mild tremors noted. The patient overdosed on multiple substances. DDx: R/O Bipolar DO, R/O Substance Induced Mood DO Recommendation/Plan: Continue 2012 with placement to inpatient psy/rehab services. Continue Remeron 15 mg PO HS for depression/PTSD and Vistaril 25 mg PO Q6hrs PRN for anxiety. Discussed possible suicidality/medication induced nato with patient reference Remeron. Discussed generalized coping skills with patient. Discussed the importance to abstain from recreational drug use with patient.
[2018-01-25] MEDS: LOVENOX SUB-Q SCH (10:51)
[2018-01-25] MEDS: KEPPRA PO SCH ×2 (10:51→21:26)
[2018-01-25] MEDS: LEVAQUIN PO SCH (10:51)
[2018-01-25] MEDS: PEPCID PO SCH ×2 (10:51→21:26)
[2018-01-25] MEDS: PERCOCET 5/325 PO PRN ×2 (10:52→17:52)
[2018-01-25] MEDS: ZOFRAN IV PRN ×2 (11:00→20:09)
--- NOTE | 2018-01-25 11:36 | Progress Note ---
Assessment and Plan Assessment and plan: 27-year-old female comes in for seizure activity and agitation. Patient apparently overdosed on GBH. Patient with altered sensorium which improved over the next couple of hours to normal sensorium while in the ER. No fever chills. No shortness of breath or palpitations. Patient is suicidal intentions. Per patient's mother, who was interviewed by mental health director transportation, patient took a cocktail mixture of cocaine, THC, meth, liquid G and a pesticide. She today complained of chronic chest pain Atypical Chest pain -Secondary to costochondritis -Check chest xray -Pain control -ekg Drug overdose IV fluids for now, CIAR protocol Seizure disorder Continue Keppra 750mg po bid Suicide attempt Patient on 1012, Mental health assessed pt, she will d/c to mental health facility when bed available. She is medically stable for discharge UTI. Started on Levaquin po Hypokalemia, resolved DVT prophylaxis: Lovenox,SCDs Plan discussed with patient and Pysch team History Interval history: Patient is seen today for: Suicidal ideation Seen and examined at bedside; 24hour events reviewed; nursing staff ; no adverse overnight events reported to me; Denies any nausea, vomiting, diarrhea No fever noted blood pressure controlled. Otherwise reports chronic chest pain generalized ongoing for 3.5years with pleuritic component Ye worse with deep inspiration. Ars. Hospitalist Physical - Physical exam Narrative exam: VITAL SIGNS: Reviewed. GENERAL: The patient appeared well nourished and normally developed. Vital signs as documented. HEAD: No signs of head trauma. EYES: Pupils are equal. Extraocular motions intact. EARS: Hearing grossly intact. MOUTH: Oropharynx is normal. NECK: No adenopathy, no JVD. CHEST: Chest with clear breath sounds bilaterally. Generalized chest wall tenderness although not existing when distracted. No wheezes, rales, or rhonchi. CARDIAC: Regular rate and rhythm. S1 and S2, without murmurs, gallops, or rubs. VASCULAR: No Edema. Peripheral pulses normal and equal in all extremities. ABDOMEN: Soft, without detectable tenderness. No sign of distention. No rebound or guarding, and no masses palpated. Bowel Sounds normal. MUSCULOSKELETAL: Good range of motion of all major joints. Extremities without clubbing, cyanosis or edema. NEUROLOGIC EXAM: Alert and oriented x 3. No focal sensory or strength deficits. Speech normal. Follows commands. PSYCHIATRIC: Disorganized thought process SKIN: No rash or lesions. - Constitutional Vitals: Temp Pulse Resp BP Pulse Ox 98.2 F 102 H 18 127/84 97 01/25/18 08:45 01/25/18 08:45 01/25/18 08:45 01/25/18 08:45 01/25/18 08:45 General appearance: Present: no acute distress, well-nourished Results - Labs CBC & Chem 7: 01/21/18 06:17 01/21/18 06:17 Labs: Laboratory Last Values WBC 9.0 K/mm3 (4.5-11.0) 01/21/18 06:17 RBC 4.39 M/mm3 (3.65-5.03) 01/21/18 06:17 Hgb 12.4 gm/dl (10.1-14.3) 01/21/18 06:17 Hct 39.0 % (30.3-42.9) 01/21/18 06:17 MCV 89 fl (79-97) 01/21/18 06:17 MCH 28 pg (28-32) 01/21/18 06:17 MCHC 32 % (30-34) 01/21/18 06:17 RDW 15.1 % (13.2-15.2) 01/21/18 06:17 Plt Count 417 K/mm3 (140-440) 01/21/18 06:17 Lymph % (Auto) 46.9 % (13.4-35.0) H 01/21/18 06:17 [place] % (Auto) 5.9 % (0.0-7.3) 01/21/18 06:17 Eos % (Auto) 1.0 % (0.0-4.3) 01/21/18 06:17 Baso % (Auto) 1.1 % (0.0-1.8) 01/21/18 06:17 Lymph # 4.2 K/mm3 (1.2-5.4) 01/21/18 06:17 [place] # 0.5 K/mm3 (0.0-0.8) 01/21/18 06:17 Eos # 0.1 K/mm3 (0.0-0.4) 01/21/18 06:17 Baso # 0.1 K/mm3 (0.0-0.1) 01/21/18 06:17 Seg Neutrophils % 45.1 % (40.0-70.0) 01/21/18 06:17 Seg Neutrophils # 4.0 K/mm3 (1.8-7.7) 01/21/18 06:17 Sodium 140 mmol/L (137-145) 01/21/18 06:17 Potassium 3.9 mmol/L (3.6-5.0) D 01/21/18 06:17 Chloride 105.3 mmol/L (98-107) 01/21/18 06:17 Carbon Dioxide 21 mmol/L (22-30) L 01/21/18 06:17 Anion Gap 18 mmol/L 01/21/18 06:17 BUN 7 mg/dL (7-17) 01/21/18 06:17 Creatinine 0.5 mg/dL (0.7-1.2) L 01/21/18 06:17 Estimated GFR > 60 ml/min 01/21/18 06:17 BUN/Creatinine Ratio 14 % 01/21/18 06:17 Glucose 94 mg/dL (65-100) 01/21/18 06:17 Calcium 8.9 mg/dL (8.4-10.2) 01/21/18 06:17 Phosphorus 3.00 mg/dL (2.5-4.5) 01/20/18 23:28 Magnesium 1.80 mg/dL (1.7-2.3) 01/20/18 23:28 Total Bilirubin 0.30 mg/dL (0.1-1.2) 01/21/18 06:17 AST 13 units/L (5-40) 01/21/18 06:17 ALT 18 units/L (7-56) 01/21/18 06:17 Alkaline Phosphatase 91 units/L (35-129) 01/21/18 06:17 Total Protein 6.4 g/dL (6.3-8.2) 01/21/18 06:17 Albumin 3.6 g/dL (3.9-5) L 01/21/18 06:17 Albumin/Globulin Ratio 1.3 % 01/21/18 06:17 Amylase 92 units/L (27-131) 01/20/18 23:28 Urine Color Sonia (Yellow) 01/20/18 08:45 Urine Turbidity Cloudy (Clear) 01/20/18 08:45 Urine pH 6.0 (5.0-7.0) 01/20/18 08:45 Ur Specific [place] 1.021 (1.003-1.030) 01/20/18 08:45 Urine Protein <15 mg/dl mg/dL (Negative) 01/20/18 08:45 Urine Glucose (UA) Neg mg/dL (Negative) 01/20/18 08:45 Urine Ketones Tr mg/dL (Negative) 01/20/18 08:45 Urine Blood Neg (Negative) 01/20/18 08:45 Urine Nitrite Neg (Negative) 01/20/18 08:45 Urine Bilirubin Neg (Negative) 01/20/18 08:45 Urine Urobilinogen 2.0 mg/dL (<2.0) 01/20/18 08:45 Ur Leukocyte Esterase Tr (Negative) 01/20/18 08:45 Urine WBC (Auto) 12.0 /HPF (0.0-6.0) H 01/20/18 08:45 Urine RBC (Auto) 1.0 /HPF (0.0-6.0) 01/20/18 08:45 U Epithel Cells (Auto) 2.0 /HPF (0-13.0) 01/20/18 08:45 Urine Bacteria (Auto) 1+ /HPF (Negative) 01/20/18 08:45 Calcium Oxalate Crystal 2+ 01/20/18 08:45 Urine Mucus 2+ /HPF 01/20/18 08:45 Urine HCG, Qual Negative (Negative) 01/20/18 08:45 Salicylates < 0.3 mg/dL (2.8-20.0) L 01/20/18 15:43 Urine Opiates Screen Presumptive negative 01/20/18 08:45 Urine Methadone Screen Presumptive negative 01/20/18 08:45 Acetaminophen < 5.0 ug/mL (10.0-30.0) L 01/20/18 15:43 Ur Barbiturates Screen Presumptive negative 01/20/18 08:45 Ur Phencyclidine Scrn Presumptive negative 01/20/18 08:45 Ur Amphetamines Screen Presumptive positive 01/20/18 08:45 U Benzodiazepines Scrn Presumptive positive 01/20/18 08:45 Urine Cocaine Screen Presumptive positive 01/20/18 08:45 U Marijuana (THC) Screen Presumptive positive 01/20/18 08:45 Drugs of Abuse Note Disclamer 01/20/18 08:45 - Imaging and Cardiology Chest x-ray: pending
--- NOTE | 2018-01-25 12:22 | XRay Report ---
AP CHEST: HISTORY: Pleuritic chest pain AP view of the chest demonstrates a normal mediastinal and cardiac contour with clear lungs and normal bony and soft tissue structures. IMPRESSION: Unremarkable AP chest. No change since 09/11/15.
[2018-01-25] MEDS: REMERON PO SCH (21:26)
[2018-01-26] MEDS: PERCOCET 5/325 PO PRN ×2 (00:59→08:45)
[2018-01-26] MEDS: ZOFRAN IV PRN (08:45)
[2018-01-26] MEDS: KEPPRA PO SCH ×2 (11:24→21:53)
[2018-01-26] MEDS: HABITROL TD SCH (11:24)
[2018-01-26] MEDS: LOVENOX SUB-Q SCH (11:24)
[2018-01-26] MEDS: PEPCID PO SCH ×2 (11:25→21:54)
[2018-01-26] MEDS: LEVAQUIN PO SCH (11:25)
[2018-01-26] MEDS: SODIUM CHLORIDE FLUSH SYRINGE 10 ML IV SCH ×2 (11:26→21:54)
[2018-01-26] MEDS ORDERED: REGLAN IV PRN (12:24)
--- NOTE | 2018-01-26 12:26 | Progress Note ---
Assessment and Plan Assessment and plan: 27-year-old female comes in for seizure activity and agitation. Patient apparently overdosed on GBH. Patient with altered sensorium which improved over the next couple of hours to normal sensorium while in the ER. No fever chills. No shortness of breath or palpitations. Patient is suicidal intentions. Per patient's mother, who was interviewed by mental health climate change risk assessor, patient took a cocktail mixture of cocaine, THC, meth, liquid G and a pesticide. She today complained of chronic chest pain Atypical Chest pain -Secondary to costochondritis -chest xray negative -Change pain meds to ultram Drug overdose IV fluids for now, CIVA protocol Seizure disorder Continue Keppra 750mg po bid Suicide attempt Patient on 1012, Mental health assessed pt, she will d/c to mental health facility when bed available. She is medically stable for discharge UTI. Complete 5 days of Levaquin po Hypokalemia, resolved DVT prophylaxis: Lovenox,SCDs Plan discussed with patient and [facility] team AWAITING PLACEMENT History Interval history: Patient is seen today for: Suicidal ideation Seen and examined at bedside; 24hour events reviewed; nursing staff ; no adverse overnight events reported to me; Denies any vomiting, diarrhea No fever noted blood pressure controlled. No new chest pain BUT reports nausea. Hospitalist Physical - Physical exam Narrative exam: VITAL SIGNS: Reviewed. GENERAL: The patient appeared well nourished and normally developed. Vital signs as documented. HEAD: No signs of head trauma. EYES: Pupils are equal. Extraocular motions intact. EARS: Hearing grossly intact. MOUTH: Oropharynx is normal. NECK: No adenopathy, no JVD. CHEST: Chest with clear breath sounds bilaterally. Generalized chest wall tenderness although not existing when distracted. No wheezes, rales, or rhonchi. CARDIAC: Regular rate and rhythm. S1 and S2, without murmurs, gallops, or rubs. VASCULAR: No Edema. Peripheral pulses normal and equal in all extremities. ABDOMEN: Soft, without detectable tenderness. No sign of distention. No rebound or guarding, and no masses palpated. Bowel Sounds normal. MUSCULOSKELETAL: Good range of motion of all major joints. Extremities without clubbing, cyanosis or edema. NEUROLOGIC EXAM: Alert and oriented x 3. No focal sensory or strength deficits. Speech normal. Follows commands. PSYCHIATRIC: Disorganized thought process SKIN: No rash or lesions. - Constitutional Vitals: Temp Pulse Resp BP Pulse Ox 98.9 F 94 H 20 127/89 98 01/26/18 07:30 01/26/18 07:30 01/26/18 08:45 01/26/18 07:30 01/26/18 07:30 General appearance: Present: no acute distress, well-nourished Results - Labs CBC & Chem 7: 01/21/18 06:17 01/21/18 06:17 Labs: Laboratory Last Values WBC 9.0 K/mm3 (4.5-11.0) 01/21/18 06:17 RBC 4.39 M/mm3 (3.65-5.03) 01/21/18 06:17 Hgb 12.4 gm/dl (10.1-14.3) 01/21/18 06:17 Hct 39.0 % (30.3-42.9) 01/21/18 06:17 MCV 89 fl (79-97) 01/21/18 06:17 MCH 28 pg (28-32) 01/21/18 06:17 MCHC 32 % (30-34) 01/21/18 06:17 RDW 15.1 % (13.2-15.2) 01/21/18 06:17 Plt Count 417 K/mm3 (140-440) 01/21/18 06:17 Lymph % (Auto) 46.9 % (13.4-35.0) H 01/21/18 06:17 [place] % (Auto) 5.9 % (0.0-7.3) 01/21/18 06:17 Eos % (Auto) 1.0 % (0.0-4.3) 01/21/18 06:17 Baso % (Auto) 1.1 % (0.0-1.8) 01/21/18 06:17 Lymph # 4.2 K/mm3 (1.2-5.4) 01/21/18 06:17 [place] # 0.5 K/mm3 (0.0-0.8) 01/21/18 06:17 Eos # 0.1 K/mm3 (0.0-0.4) 01/21/18 06:17 Baso # 0.1 K/mm3 (0.0-0.1) 01/21/18 06:17 Seg Neutrophils % 45.1 % (40.0-70.0) 01/21/18 06:17 Seg Neutrophils # 4.0 K/mm3 (1.8-7.7) 01/21/18 06:17 Sodium 140 mmol/L (137-145) 01/21/18 06:17 Potassium 3.9 mmol/L (3.6-5.0) D 01/21/18 06:17 Chloride 105.3 mmol/L (98-107) 01/21/18 06:17 Carbon Dioxide 21 mmol/L (22-30) L 01/21/18 06:17 Anion Gap 18 mmol/L 01/21/18 06:17 BUN 7 mg/dL (7-17) 01/21/18 06:17 Creatinine 0.5 mg/dL (0.7-1.2) L 01/21/18 06:17 Estimated GFR > 60 ml/min 01/21/18 06:17 BUN/Creatinine Ratio 14 % 01/21/18 06:17 Glucose 94 mg/dL (65-100) 01/21/18 06:17 Calcium 8.9 mg/dL (8.4-10.2) 01/21/18 06:17 Phosphorus 3.00 mg/dL (2.5-4.5) 01/20/18 23:28 Magnesium 1.80 mg/dL (1.7-2.3) 01/20/18 23:28 Total Bilirubin 0.30 mg/dL (0.1-1.2) 01/21/18 06:17 AST 13 units/L (5-40) 01/21/18 06:17 ALT 18 units/L (7-56) 01/21/18 06:17 Alkaline Phosphatase 91 units/L (35-129) 01/21/18 06:17 Total Protein 6.4 g/dL (6.3-8.2) 01/21/18 06:17 Albumin 3.6 g/dL (3.9-5) L 01/21/18 06:17 Albumin/Globulin Ratio 1.3 % 01/21/18 06:17 Amylase 92 units/L (27-131) 01/20/18 23:28 Urine Color Sonia (Yellow) 01/20/18 08:45 Urine Turbidity Cloudy (Clear) 01/20/18 08:45 Urine pH 6.0 (5.0-7.0) 01/20/18 08:45 Ur Specific [place] 1.021 (1.003-1.030) 01/20/18 08:45 Urine Protein <15 mg/dl mg/dL (Negative) 01/20/18 08:45 Urine Glucose (UA) Neg mg/dL (Negative) 01/20/18 08:45 Urine Ketones Tr mg/dL (Negative) 01/20/18 08:45 Urine Blood Neg (Negative) 01/20/18 08:45 Urine Nitrite Neg (Negative) 01/20/18 08:45 Urine Bilirubin Neg (Negative) 01/20/18 08:45 Urine Urobilinogen 2.0 mg/dL (<2.0) 01/20/18 08:45 Ur Leukocyte Esterase Tr (Negative) 01/20/18 08:45 Urine WBC (Auto) 12.0 /HPF (0.0-6.0) H 01/20/18 08:45 Urine RBC (Auto) 1.0 /HPF (0.0-6.0) 01/20/18 08:45 U Epithel Cells (Auto) 2.0 /HPF (0-13.0) 01/20/18 08:45 Urine Bacteria (Auto) 1+ /HPF (Negative) 01/20/18 08:45 Calcium Oxalate Crystal 2+ 01/20/18 08:45 Urine Mucus 2+ /HPF 01/20/18 08:45 Urine HCG, Qual Negative (Negative) 01/20/18 08:45 Salicylates < 0.3 mg/dL (2.8-20.0) L 01/20/18 15:43 Urine Opiates Screen Presumptive negative 01/20/18 08:45 Urine Methadone Screen Presumptive negative 01/20/18 08:45 Acetaminophen < 5.0 ug/mL (10.0-30.0) L 01/20/18 15:43 Ur Barbiturates Screen Presumptive negative 01/20/18 08:45 Ur Phencyclidine Scrn Presumptive negative 01/20/18 08:45 Ur Amphetamines Screen Presumptive positive 01/20/18 08:45 U Benzodiazepines Scrn Presumptive positive 01/20/18 08:45 Urine Cocaine Screen Presumptive positive 01/20/18 08:45 U Marijuana (THC) Screen Presumptive positive 01/20/18 08:45 Drugs of Abuse Note Disclamer 01/20/18 08:45
[2018-01-26] MEDS: ULTRAM PO PRN ×2 (15:00→21:59)
[2018-01-26] MEDS: REMERON PO SCH (21:53)
[2018-01-27] MEDS ORDERED: APRESOLINE IV PRN (03:56)
[2018-01-27 08:29] LABS: BUN/Creatinine Ratio 20; Blood Urea Nitrogen 12 mg/dL (7-17); Calcium 9.6 mg/dL (8.4-10.2); Hemolysis Index 16
[2018-01-27] MEDS: KEPPRA PO SCH (10:08)
[2018-01-27] MEDS: LEVAQUIN PO SCH (10:08)
[2018-01-27] MEDS: PEPCID PO SCH (10:08)
[2018-01-27] MEDS: LOVENOX SUB-Q SCH (10:09)
[2018-01-27] MEDS: HABITROL TD SCH (10:09)
[2018-01-27] MEDS: SODIUM CHLORIDE FLUSH SYRINGE 10 ML IV SCH (11:06)
--- NOTE | 2018-01-27 12:48 | Discharge Summary ---
Providers - Providers Date of Admission: 01/20/18 15:43 Attending physician: RORY CHRISTIAN MD 01/20/18 23:00 Consult to Mental Health [CONS] Routine Reason For Exam: suicidal attempt Place consult to:: Mental Health Notified:: Saskia WATERS Phone number called:: [phone] Was contact made?: Yes If yes, spoke with:: [facility] Time called:: 08:15 Primary care physician: [employer] Hospitalization Condition: Serious Disposition: DC/TX-65 PSY HOSP/PSY UNIT Time spent for discharge: 35 mins Exam - Constitutional Vitals: Temp Pulse Resp BP Pulse Ox 98.6 F 116 H 18 142/93 97 01/27/18 08:21 01/27/18 08:22 01/27/18 08:21 01/27/18 08:21 01/27/18 08:22 Plan Activity: advance as tolerated Diet: regular Special Instructions: record daily BP diary, record blood sugar diary, smoking cessation Follow up with: PRIMARY CARE, [Primary Care Provider] - 3-5 Days Forms: Work/School Release Form(ED) Prescriptions: Mirtazapine [Remeron] 15 mg PO QHS #10 tablet hydrOXYzine PAMOATE [Vistaril] 25 mg PO Q6H PRN #14 capsule PRN Reason: Anxiety levETIRAcetam [Keppra] 500 mg PO BID #60 tablet Nadolol [Corgard] 20 mg PO QDAY #30 tablet
--- NOTE | 2018-01-27 13:24 | Progress Note ---
Subjective - Reason for Consult Consult date: 01/27/18 Reason for consult: Psychiatry Follow-up - Chief Complaint Chief complaint: "I have learned my lesson" 27-year-old female presents emergency room with seizure-like activity and thrashing around. Today the patient is calm and cooperative during the assessment. Per collateral information from her mother Ms Sandra Blackwood at , she stated that her daughter has a substance abuse problem. She feels that her daughter learned her lesson per her actions prior to being admitted to the hospital. She stated that she is the patient's support system along with her ex , the patient's father. Per the patient, she plan to move with her father once discharged. Also, the patient's mother will accompany her to all outpatient/rehab appts. The patient's plans was confirmed by Ms Sandra Blackwood. The patient denies SI/HI's and AVH's. She stated that she plan to use all of her mental health resources. She denies any side effects of her medications. Mental Status Exam - Vital signs Last Vital Signs Temp 98.6 F 01/27/18 08:21 Pulse 116 H 01/27/18 08:22 Resp 18 01/27/18 08:21 BP 142/93 01/27/18 08:21 Pulse Ox 97 01/27/18 08:22 - Exam Narrative exam: MSE: Appearance: calm, cooperative Behavior: regular eye contact Speech: regular rate and tone Mood: "okay" Affect: normal Thought Process: linear Thought Content: denies SI/HI's and AVH's Motor Activity: sitting up in bed Cognition: A/O x 3 Insight: appropriate Judgment: appropriate Assessment and Plan Impression: MDD, Severe Type. MARLINE. Substance Use DO (cocaine). Cannabis Use DO. PTSD. Today the patient is calm and cooperative during the assessment. The patient positive for benzos. The patient is no threat to self. DDx: R/O Bipolar DO, R/O Substance Induced Mood DO I. This screening and assessment is based on information collected from the following sources: II. SUICIDE RISK SCREENING (within last 30 days): A.) Suicidal thoughts/behaviors: Yes SUICIDE RISK ASSESSMENT III. FACTORS THAT INCREASE RISK: A.) Demographic and Substance Use Factors: Yes (Marijuana, Cocaine, and Marijuana) B.) Current/Recent Factors (within past 3 months): Psychosocial/Environmental Factors: Life Stressors Physical Illness: None Cognitive/Psychological Factors: None C.) Historical Factors: None D.) Diagnostic/Symptom/Treatment Factors: None E.) Acute Risk Factor Severity (DESC; MILD/MOD/SEVERE): Mild Other factors for this individual that increase risk: None IV. FACTORS THAT DECREASE RISK: Resilience/Protective Factors: Patient want to decrease her stress and stop using recreational drugs Other factors for this individual that decrease risk: Patient denies a desire to harm self V. Clinician's Formulation of Risk and Determination of level of Care: This is a 27-year-old white female who ingested multiple substance prior to her arrival to the ER. She stated that she was not trying to kill herself. She stated a hx of substance abuse. She acknowledged that she should have not ingested unknown substances. She stated that she will follow-up with outpatient psy/rehab services once discharged. Since being hospitalized the patient has consistently denied the desire to harm herself. Additionally, she has become insightful about how to better address her current issues. The patient is not impaired by substance. She is able to take care of her ADLs and is not at imminent risk of harm to self or others. Consequently, it is the opinion of the treatment team that the patient is at low risk of suicide and does not meet criteria to continue an involuntary psychiatric hold. Estimation of Imminent Risk: Low due to the above explanation. Determination of Level of Care based on Suicide Risk: Outpatient follow-up. Narrative description of clinical reasoning. Given the fact that the patient is willing to engage in outpatient/rehab services and has a supportive network ( mother/father), it is reasonable to expect that the patient will seek services. Furthermore, the patient appears future oriented and denies that her intention was to end her life. She is regretful of the decision and has several things in his life to look forward to. At this current time, she is not impulsive and does not have any risk factors to increase the likelihood of her impulsive behavior. Therefore, it is reasonable to expect that the patient will engage in outpatient/rehab services which will reduce further unsafe behaviors. . Plan and Interventions based on Suicide Risk: This patient will likely be stepped down to an outpatient mental health center in the community upon discharge and follow-up within 7 days of her discharge from the hospital. VII. Discharge/After Hours Support Plan: Patient can return back to the ER, call 911 or crisis line if symptoms of depression, anxiety, suicidality return. Recommendation/Plan: Rescind 2013. Continue Remeron 15 mg PO HS for depression/ PTSD and Vistaril 25 mg PO Q6hrs PRN for anxiety. Discussed possible suicidality /medication induced nato with patient reference Remeron. Discussed generalized coping skills with patient. Discussed the importance to abstain from recreational drug use with patient. The patient can follow up with [facility] for outpatient psy/rehab services.
[2018-01-27] MEDS: ULTRAM PO PRN (13:25)
[2018-01-27] MEDS ORDERED: CORGARD PO SCH (14:00)
[2018-01-27 14:26] VITALS: BP 143/100
== END 2018-01-27 15:00 | disposition home or self-care (01) | DRG 918 ==
LOC: EEVIPCON 07:35 → ED 07:35 → 4A 15:43 → EEVIPCON 15:43 → 4A 18:30 → 3A 01-24 13:09
PROVIDERS: ADMIT Internal Medicine; ATTEND Internal Medicine
DX: T42.4X1A Poisoning by benzodiazepines, accidental (unintentional), initial encounter (principal); N39.0 Urinary tract infection, site not specified; R07.89 Other chest pain; G40.909 Epilepsy, unspecified, not intractable, without status epilepticus; E87.6 Hypokalemia; M94.0 Chondrocostal junction syndrome [Tietze]; F17.200 Nicotine dependence, unspecified, uncomplicated; F31.9 Bipolar disorder, unspecified; F32.9 Major depressive disorder, single episode, unspecified; T40.5X1A Poisoning by cocaine, accidental (unintentional), initial encounter; T40.7X1A Poisoning by cannabis (derivatives), accidental (unintentional), initial encounter; Y92.89 Other specified places as the place of occurrence of the external cause
CPT/HCPCS: 36415; 70450; 71045; 80048; 80053; 80307; 80320; 81001; 81025; 82150; 83735; 84100; 85025; 87086; 93005; 93010; 99291; 99406; G0480; J0360; J0461; J0696; J1630; J1650; J1953; J2060; J2405; J2765; J3480; J7030; J7042; Q0177